=== PATIENT | female | born 1945 | race Two or more races ===

== ENCOUNTER 2016-11-01 11:36 | Emergency (ER) | payer SELFPAY ==
[~2016-11-01] VITALS: Ht 167.6 cm; Wt 68.0 kg
[2016-11-01 11:36] VITALS: BP 128/82
[~2016-11-01 11:36] MED LIST: NKM
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
[2016-11-01 14:00] VITALS: BP 128/82
== END 2016-11-01 14:03 | disposition home or self-care (01) ==
LOC: EDBD 11:36 → EMR 12:00
DX: S09.90XA Unspecified injury of head, initial encounter (principal); X58.XXXA Exposure to other specified factors, initial encounter; Y93.9 Activity, unspecified; Y92.9 Unspecified place or not applicable
CPT/HCPCS: 70450; 99284

== ENCOUNTER 2017-05-15 06:39 | Emergency (ER) | payer BC ==
[~2017-05-15] VITALS: Ht 167.6 cm; Wt 63.5 kg
[2017-05-15] MEDS ORDERED: NKM (06:48)
[2017-05-15] MEDS ORDERED: Clindamycin 150mg cap ORAL ONE (07:00)
[2017-05-15] MEDS ORDERED: CLINDAMYCIN HC300 MG ORAL (07:06)
[2017-05-15 07:16] VITALS: BP 159/92
--- NOTE | 2017-05-15 09:37 | Emergency Room Report ---
History of Present Illness General Chief Complaint: General Complaint Source: Patient Present Illness HPI 72-year-old female presents ED complaining of left foot swelling x3 months. Patient states the last time she had this she was told she she had cellulitis. Was given antibiotics and it resolved. Patient states symptoms have returned. Denies any pain. Denies any fevers or chills. Notes redness and swelling. Denies any food or drug allergies. No other aggravating or relieving factors. Denies any other associated symptoms Allergies: Coded Allergies: No Known Allergies (Unverified , 11/01/16) Patient History Past Medical History: none Past Surgical History: none Pertinent Family History: none Social History: Denies: smoking, alcohol use, drug use Last Menstrual Period: NONE Now: No Immunizations: UTD Reviewed Nursing Documentation: PMH: Agreed, PSxH: Agreed Nursing Documentation-PMH Past Medical History: No Stated History Review of Systems All Other Systems: negative except mentioned in HPI Physical Exam Vital Signs Date Time Temp Pulse Resp B/P (MAP) Pulse Ox O2 Delivery O2 Flow Rate FiO2 05/15/17 06:44 97.3 73 20 159/92 97 Room Air Sp02 EP Interpretation: reviewed, normal General Appearance: no apparent distress, alert, GCS 15, non-toxic Head: normocephalic Eyes: bilateral eye normal inspection, bilateral eye PERRL ENT: normal ENT inspection Neck: normal inspection Respiratory: normal inspection Cardiovascular #1: normal inspection Gastrointestinal: normal inspection Rectal: deferred Genitourinary: no CVA tenderness Musculoskeletal: swelling - L foot Neurologic: alert, oriented x3, responsive, motor strength/tone normal, sensory intact, speech normal Psychiatric: judgement/insight normal, memory normal, mood/affect normal, no suicidal/homicidal ideation Skin: other - erythema/induration L foot Lymphatic: normal inspection Medical Decision Making Diagnostic Impression: Primary Impression: Cellulitis of foot ER Course Hospital Course 72-year-old female presents to ED with redness, swelling to L foot Differential diagnoses include: Cellulitis, dermatitis, insect bite, abscess Clinical course Patient placed on stretcher. After initial history, physical exam reveals an elderly female in no acute distress. On exam there is a site for mild erythema and induration to the L foot. here is no fluctuance. There is no tenderness. Full range of motion is noted and there is no concern for any signs of infection to the joint. given clindamycin PO in ED Diagnosis -cellulitis of foot stable and discharged to home with prescription for Clindamycin. Instructed to followup with PMD. Instructed return to ED if symptoms recur or worsen Last Vital Signs Date Time Temp Pulse Resp B/P (MAP) Pulse Ox O2 Delivery O2 Flow Rate FiO2 05/15/17 07:16 97.3 20 159/92 97 Room Air 05/15/17 06:44 73 Status: improved Disposition: HOME, SELF-CARE Condition: Stable Scripts Clindamycin Hcl (CLINDAMYCIN HCL) 300 Mg Capsule 300 MG ORAL THREE TIMES A DAY, #21 CAP Prov: JESSICA BEAR M.D. 05/15/17 Referrals: [facility],REFERRING (PCP) Patient Instructions: Cellulitis, [id number] JESSICA BEAR M.D. May 15, 2017 09:37
== END 2017-05-15 07:15 | disposition home or self-care (01) ==
LOC: EMR 06:57
DX: M79.89 Other specified soft tissue disorders (principal); L03.116 Cellulitis of left lower limb
CPT/HCPCS: 99283

== ENCOUNTER 2017-07-09 22:08 | Emergency (ER) | payer BC, MEDICARE ==
[~2017-07-09] VITALS: Ht 167.6 cm; Wt 65.8 kg
[~2017-07-09 22:08] MED LIST changes: +CLINDAMYCIN HC300 MG ORAL
[2017-07-09 22:15] VITALS: BP 153/87
[2017-07-09] MEDS ORDERED: Acetaminophen 500mg (ES) tab ORAL ONE (22:15)
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
[2017-07-09] MEDS ORDERED: ACETAMINOPHEN500 M3 ORAL (23:13)
[2017-07-09 23:30] VITALS: BP_SYST 147; BP_SYST 153; BP_DIAS 87; BP_DIAS 88
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
== END 2017-07-09 23:30 | disposition home or self-care (01) ==
LOC: EDBD 22:08 → EMR 22:19
DX: S02.2XXA Fracture of nasal bones, initial encounter for closed fracture (principal); S00.83XA Contusion of other part of head, initial encounter; S00.31XA Abrasion of nose, initial encounter; V43.52XA Car driver injured in collision with other type car in traffic accident, initial encounter; Y92.410 Unspecified street and highway as the place of occurrence of the external cause
CPT/HCPCS: 70450; 99284

== ENCOUNTER 2019-03-03 21:54 | Emergency (ER) | payer MEDICARE ==
[~2019-03-03] VITALS: Ht 170.2 cm; Wt 59.0 kg
[~2019-03-03 21:54] MED LIST changes: +ACETAMINOPHEN500 M3 ORAL
--- NOTE | 2019-03-03 22:31 | NUR ---
ED Nurse Note: Patient walked into ED c/o irritated both eyes for 10 days. Pt is AO x4 times, VSS, on room air no distress. ERMD seen Pt at bedside.
[2019-03-03 23:01] VITALS: BP 148/82
[2019-03-03] MEDS ORDERED: ARTIFICIAL TEAR15 ML BOTH EYES (23:14)
[2019-03-03] MEDS ORDERED: OLOPATADINE HCL5 ML OP (23:14)
--- NOTE | 2019-03-03 23:15 | Emergency Room Report ---
History of Present Illness General Chief Complaint: Eye Problems Source: Patient Present Illness HPI Patient is a 73-year-old female presented after increased bilateral eye redness and dryness. Patient stated that she had onset of symptoms approximate 1 week ago. She denies any recent trauma. She denies any visual changes. She reports having prior history of recent eyelash in her left eye. She denies any history of recent discharge from her eyes. She states that in the morning she has had and some increased discomfort. Allergies: Coded Allergies: No Known Allergies (Unverified , 11/01/16) Patient History Past Medical History: see triage record Last Menstrual Period: n/a Reviewed Nursing Documentation: PMH: Agreed; PSxH: Agreed Nursing Documentation-PMH Past Medical History: No History, Except For Review of Systems All Other Systems: negative except mentioned in HPI Physical Exam Vital Signs Date Time Temp Pulse Resp B/P (MAP) Pulse Ox O2 Delivery O2 Flow Rate FiO2 03/03/19 21:55 98.1 77 18 152/86 (108) 97 Room Air General Appearance: well appearing, no apparent distress, alert, GCS 15, non- toxic Head: normocephalic, atraumatic Eyes: bilateral eye PERRL, bilateral eye other - Bilateral conjunctival injection and pterygia to both eyes. ENT: hearing grossly normal, normal voice Neck: full range of motion, supple Respiratory: chest non-tender, lungs clear, normal breath sounds, no respiratory distress, speaking full sentences Gastrointestinal: normal inspection Musculoskeletal: normal inspection, no calf tenderness Neurologic: normal inspection, alert, oriented x3, normal gait Psychiatric: mood/affect normal Skin: no rash Medical Decision Making Diagnostic Impression: Primary Impression: Allergic conjunctivitis ER Course Patient presented for eye redness. Differential diagnosis include was not limited to conjunctivitis, allergic reaction, glaucoma, iritis among others. Patient has a benign exam. She was noted to have bilateral pterygium. She appears to have some evidence of chronic irritation to her eyelids. There is no evidence of foreign body. Patient is noted to have baseline visual acuity. Patient was advised to follow-up with ophthalmology for recheck and further evaluation of eye redness. She is advised to return if she had any concerns. Last Vital Signs Date Time Temp Pulse Resp B/P (MAP) Pulse Ox O2 Delivery O2 Flow Rate FiO2 03/03/19 23:01 97.5 74 18 148/82 99 Room Air Status: improved Disposition: HOME, SELF-CARE Condition: Stable Scripts Olopatadine HCl (Olopatadine HCl) 5 Ml Drops 1 DROP OP DAILY, #5 ML Prov: Eric Zarate MD 03/03/19 Dextran 70/Hypromellose (ARTIFICIAL TEARS EYE DROPS*) 15 Ml Drops 1 DROP BOTH EYES THREE TIMES A DAY, #15 ML 0 Refills Prov: Eric Zarate MD 03/03/19 Patient Instructions: Allergic Conjunctivitis Eric Zarate MD Mar 03, 2019 23:15
[2019-03-03 23:20] VITALS: BP 148/82
--- NOTE | 2019-03-03 23:22 | NUR ---
ER DISCHARGE NOTE: Patient is cleared to be discharged per ERMD, pt is aox4, on room air, with stable vital signs. pt was given dc and prescription instructions, pt was able to verbalize understanding, pt id band removed without complications. pt is able to ambulate with steady gait. pt took all belongings.
== END 2019-03-03 23:20 | disposition home or self-care (01) ==
LOC: EMR 22:57
DX: H10.10 Acute atopic conjunctivitis, unspecified eye (principal)
CPT/HCPCS: 99282